=== PATIENT | female | born 1950 | race African-American/Black ===

== ENCOUNTER 2017-07-06 08:30 | Outpatient (CLI) | payer MEDICARE | END 2017-07-06 08:31 | disposition home or self-care (01) | LOC: BICRAD 08:30 | PROVIDERS: ATTEND Family Medicine | DX: M16.0 Bilateral primary osteoarthritis of hip (principal); M46.94 Unspecified inflammatory spondylopathy, thoracic region; M41.9 Scoliosis, unspecified; R10.9 Unspecified abdominal pain | CPT/HCPCS: 72072; 72170 ==

== ENCOUNTER 2017-08-27 08:47 | Outpatient (CLI) | payer MEDICARE | END 2017-08-27 08:48 | disposition home or self-care (01) | LOC: CTENTCT 08:47 | PROVIDERS: ATTEND Otolaryngology Plastic Surgery within the Head & Neck | DX: J32.9 Chronic sinusitis, unspecified (principal) | CPT/HCPCS: 70486 ==

== ENCOUNTER 2017-09-19 07:03 | Day surgery (SDC) | payer MEDICARE ==
[2017-09-18 11:22] VITALS: BMI 32.3
[2017-09-19] MEDS ORDERED: Oxymetazoline HCl 0.05% ( 15 ML ) ONE (07:47)
[2017-09-19] MEDS ORDERED: Scopolamine 1.5 mg/72 hour Patch ONE (08:24)
[2017-09-19 08:41] LABS: Hemoglobin 12.1 g/dL (12.0-16.0)
[2017-09-19 08:59] LABS: Anion Gap 11 mmol/L (10-20); BUN (Urea Nitrogen) 9 mg/dL (9.8-20.1); Calc. Creatinine Clearance 92 mL/min (70-130); Calcium 9.9 mg/dL (7.8-10.44); Carbon Dioxide 28 mmol/L (23-31); Chloride 103 mmol/L (98-107); Estimated GFR-MDRD 82; Glucose 239 mg/dL (80-115); Potassium 3.9 mmol/L (3.5-5.1); Sodium 138 mmol/L (136-145)
[2017-09-19] MEDS ORDERED: Fentanyl 250 MCG/5 ML VIAL ONE (09:10)
[2017-09-19] MEDS ORDERED: Labetalol HCl 100 MG/20 ML VIAL ONE ×2 (10:13→12:29)
[2017-09-19] MEDS ORDERED: Hydrocodone-Acetamin 15 ML UDCUP ONE (11:44)
[2017-09-19] MEDS ORDERED: Morphine 4 MG/ML VIAL ONE ×2 (12:13→14:03)
[2017-09-19] MEDS ORDERED: Ondansetron HCl/PF 4 MG/2 ML Vial ONE (13:32)
[2017-09-19] MEDS ORDERED: PROPOFOL 200 MG/20 ML VIAL ONE (13:32)
[2017-09-19] MEDS ORDERED: Glycopyrrolate 0.2 MG/ML 5 ML SYRINGE ONE (13:32)
--- NOTE | 2017-09-20 13:32 | OP ---
PREOPERATIVE DIAGNOSES: 1. Chronic rhinosinusitis. 2. Bilateral inferior turbinate hypertrophy. 3. Nasal obstruction. POSTOPERATIVE DIAGNOSES: 1. Chronic rhinosinusitis. 2. Bilateral inferior turbinate hypertrophy. 3. Nasal obstruction. PROCEDURES: 1. Bilateral endoscopic sinus surgery, total ethmoidectomies. 2. Bilateral endoscopic sinus surgery, maxillary antrostomies. 3. Bilateral endoscopic sinus surgery, frontal sinusotomies. 4. Bilateral inferior turbinate submucosal resection. SURGEON: Vu Arvizu M.D. ESTIMATED BLOOD LOSS: 20 mL COMPLICATIONS: None. ANESTHESIA: GETA. PROCEDURE IN DETAIL: The patient was taken to the operating room and placed supine on the table. Ge neral endotracheal anesthesia was obtained by the Anesthesia staff. Tube was secured in the left low er lip. The patient was then placed in the beach chair position and was prepped and draped for stand tessie nasal procedure. Following this, the 0 degree scope was advanced in the nasal cavity and a 27-ga uge needle was used to inject 1% lidocaine with 1:100,000 epinephrine into the inferior turbinates, m iddle turbinates and lateral nasal wall bilaterally. Following this, the middle turbinates were iden tified and were gently medialized with a [place] elevator bilaterally. The uncinate process was then v isualized bilaterally and was anteriorly fractured using a ball-ended probe. Following this, the unc inate was then removed using the straight microdebrider and the upbiting [place]akesley forceps bilaterall y. Following this, the natural maxillary sinus ostia was gently identified with the ball-ended probe and then was widened using the straight [place] forceps and the curved microdebrider. Following t his, the ethmoidal bulla was identified bilaterally and was punctured into the OR punctured on its me dial and inferior aspect and was removed using the microdebrider and upbiting Blakesley forceps. Fol lowing this, the grand lamella was identified and was punctured into the posterior ethmoidal cells. Working from posterior to anterior, the ethmoidal cells were opened in a mucosal-sparing technique. Following this, the 45-degree scope and the 40-degree microdebrider were used to further open the fro ntal recess cells identifying the frontal sinus ostia bilaterally. The frontal sinus ostia was widen ed bilaterally using the 40-degree microdebrider. Following this, the inferior turbinates were punct ured on the anterior and inferior aspect with the submucosal microdebrider and submucosal resection w as performed on the anterior inferior portions of the inferior turbinates bilaterally. Following thi s, the nasal cavity was irrigated. MeroPacks were placed. Patient tolerated the procedure well.
== END 2017-09-19 14:40 | disposition home or self-care (01) ==
LOC: SDC 07:03
PROVIDERS: ATTEND Otolaryngology Plastic Surgery within the Head & Neck
PROC: 09TV8ZZ Resection of Left Ethmoid Sinus, Via Natural or Artificial Opening Endoscopic (ICD-10-PCS; principal; 2017-09-19)
PROC: 09TU8ZZ Resection of Right Ethmoid Sinus, Via Natural or Artificial Opening Endoscopic (ICD-10-PCS; 2017-09-19)
DX: J01.91 Acute recurrent sinusitis, unspecified (principal); J34.2 Deviated nasal septum; J34.3 Hypertrophy of nasal turbinates; E11.9 Type 2 diabetes mellitus without complications; E78.00 Pure hypercholesterolemia, unspecified; F32.9 Major depressive disorder, single episode, unspecified; Z79.84 Long term (current) use of oral hypoglycemic drugs; Z79.899 Other long term (current) drug therapy; Z88.5 Allergy status to narcotic agent
CPT/HCPCS: 36415; 80048; 85014; 85018; 93005; 93010; 96374; 96375; 96376; J2270; J2405; J2704; J3010

== ENCOUNTER 2017-09-25 12:03 | Emergency (ER) | payer MEDICARE ==
[2017-09-25] MEDS ORDERED: Ondansetron HCl/PF 4 MG/2 ML Vial ONE (13:16)
[2017-09-25 13:44] LABS: #Eosinphils 0.2 thou/uL (0.0-0.7); #Lymphocytes 1.5 thou/uL (1.20-3.40); #Monocytes 0.3 thou/uL (0.11-0.59); #Neutrophils 4.9 thou/uL (1.40-6.50); %Basophils 0.4 % (0.0-1.0); %Eosinophils 2.7 % (0.0-10.0); %Lymphocytes 22.3 % (21.0-51.0); %Monocytes 4.2 % (0.0-10.0); %Neutrophils 70.4 % (42.0-75.0); Hemoglobin 11.4 g/dL (12.0-16.0); Mean Corpuscular HGB CONC 34.3 g/dL (32.0-36.0); Mean Corpuscular Hemoglobin 31.4 pg (27.0-31.0); Mean Corpuscular Volume 91.6 fL (78.0-98.0); Mean Platelet Volume 6.1 fL (7.4-10.4); Platelet Count 318 thou/uL (130-400); RBC Distribution Width 11.4 % (11.5-14.5); Red Blood Cell (RBC) Count 3.63 mill/uL (4.20-5.40); White Blood Cell (WBC) Count 6.9 thou/uL (4.8-10.8)
[2017-09-25 14:12] LABS: Anion Gap 11 mmol/L (10-20); BUN (Urea Nitrogen) 6 mg/dL (9.8-20.1); Calc. Creatinine Clearance 0 mL/min (70-130); Calcium 9.5 mg/dL (7.8-10.44); Carbon Dioxide 28 mmol/L (23-31); Chloride 101 mmol/L (98-107); Estimated GFR-MDRD 87; Glucose 236 mg/dL (80-115); Potassium 3.6 mmol/L (3.5-5.1); Sodium 136 mmol/L (136-145)
--- NOTE | 2017-09-25 15:11 | CT ---
CT SINUSES AND FACIAL BONES: Multiple axial tomograms were obtained through sinuses and facial bones with multiplanar reconstructi on. INDICATION: Post sinus surgery. Facial pain. COMPARISON: Correlation was made to CT sinuses 08/27/17. FINDINGS: Postop changes are now noted. There are bilateral anteromedial windows. There is complete opacifica tion of the right maxillary antrum and right ethmoid air cells. On soft tissue windows, there is an area of increased density within the right maxillary sinus which may represent a localized hematoma. There is a small amount of aeration anteriorly. Mucosal edema is seen in the periphery of the left maxillary antrum with central aeration. Left ethm oid air cells are also opacified. Mucosal edema is seen in the right frontal air cell posteriorly. There is mucosal edema in the front al recesses. Sphenoid air cells are clear. IMPRESSION: 1. Postoperative changes are noted. Complete opacification of the right maxillary sinus and adjacen t ethmoid air cells. An area of increased attenuation within the right maxillary sinus may represent a localized hematoma. 2. Mucosal edema involving the left maxillary and ethmoid air cells. POS: [facility]
== END 2017-09-25 16:05 | disposition home or self-care (01) ==
LOC: ERS 12:03
DX: R51 Headache (principal); E11.9 Type 2 diabetes mellitus without complications; E78.5 Hyperlipidemia, unspecified; I10 Essential (primary) hypertension; F32.9 Major depressive disorder, single episode, unspecified; Z79.899 Other long term (current) drug therapy
CPT/HCPCS: 36415; 70486; 80048; 85025; 96361; 96374; J2270; J2405

== ENCOUNTER 2018-02-02 20:59 | Emergency (ER) | payer MEDICARE ==
[2018-02-02] MEDS ORDERED: Ondansetron PF 4 MG/2 ML Vial ONE (21:34)
[2018-02-02 21:42] LABS: #Basophils 0.1 thou/uL (0.0-0.2); #Eosinphils 0.2 thou/uL (0.0-0.7); #Lymphocytes 2.5 thou/uL (1.20-3.40); #Monocytes 0.4 thou/uL (0.11-0.59); #Neutrophils 2.7 thou/uL (1.40-6.50); %Basophils 1.1 % (0.0-1.0); %Eosinophils 2.6 % (0.0-10.0); %Lymphocytes 42.8 % (21.0-51.0); %Monocytes 7.1 % (0.0-10.0); %Neutrophils 46.5 % (42.0-75.0); Hemoglobin 13.8 g/dL (12.0-16.0); Mean Corpuscular HGB CONC 33.7 g/dL (32.0-36.0); Mean Corpuscular Hemoglobin 30.1 pg (27.0-31.0); Mean Corpuscular Volume 89.2 fL (78.0-98.0); Mean Platelet Volume 6.8 fL (7.4-10.4); Platelet Count 377 thou/uL (130-400); RBC Distribution Width 11.3 % (11.5-14.5); Red Blood Cell (RBC) Count 4.59 mill/uL (4.20-5.40); White Blood Cell (WBC) Count 5.9 thou/uL (4.8-10.8)
[2018-02-02 22:03] LABS: ALT (SGPT) 30 U/L (8-55); AST (SGOT) 44 U/L (5-34); Albumin 4.5 g/dL (3.4-4.8); Alkaline Phosphatase 92 U/L (40-150); Anion Gap 16 mmol/L (10-20); BUN (Urea Nitrogen) 5 mg/dL (9.8-20.1); Bilirubin, Total 0.7 mg/dL (0.2-1.2); Calc. Creatinine Clearance 0 mL/min (70-130); Calcium 10.9 mg/dL (7.8-10.44); Carbon Dioxide 27 mmol/L (23-31); Chloride 97 mmol/L (98-107); Estimated GFR-MDRD 87; Glucose 139 mg/dL (80-115); Lipase 20 U/L (8-78); Potassium 3.6 mmol/L (3.5-5.1); Protein, Total 8.5 g/dL (6.0-8.3); Sodium 136 mmol/L (136-145)
[2018-02-02 22:12] LABS: Bilirubin Negative (Negative); Blood, Urine Negative (Negative); Clarity CLEAR (Clear); Glucose, Urine (Dipstick) Negative (Negative); Leukocyte Trace (Negative); Nitrite Negative (Negative); Protein, Urine (Dipstick) Negative (Neg-Trace); Urobilinogen 0.2 mg/dL (0.2-1.0)
[2018-02-02 22:13] LABS: Bacteria/HPF None Seen HPF (None Seen); Hyaline Casts/LPF 0-3 HYALINE CAST LPF (0-3 Hyaline); RBC/HPF None Seen HPF (0-3); Squamous Epithelial None Seen HPF (0-3); WBC/HPF None Seen HPF (0-3)
[2018-02-02 22:14] LABS: Specific Gravity, Urine 1.004 (1.002-1.036)
== END 2018-02-02 23:55 | disposition home or self-care (01) ==
LOC: ERS 20:59
DX: K59.00 Constipation, unspecified (principal); E11.9 Type 2 diabetes mellitus without complications; E78.5 Hyperlipidemia, unspecified; I10 Essential (primary) hypertension; F32.9 Major depressive disorder, single episode, unspecified; Z79.899 Other long term (current) drug therapy; Z79.82 Long term (current) use of aspirin; Z79.84 Long term (current) use of oral hypoglycemic drugs
CPT/HCPCS: 80053; 81003; 81015; 83690; 85025; 94760; 96361; 96374; J2405

== ENCOUNTER 2018-04-24 10:42 | Outpatient (CLI) | payer MEDICARE ==
[~2018-04-24 10:42] MED LIST: Iopamidol 370 76% 100 ML VIAL ONE
[2018-04-24 11:01] LABS: Estimated GFR-MDRD - POC Greater than 90
--- NOTE | 2018-04-24 13:04 | CT ---
CT ABDOMEN AND PELVIS WITH CONTRAST: Multiple axial tomograms were obtained through the abdomen and pelvis with IV enhancement. INDICATION: Right lower quadrant abdominal pain. COMPARISON: Comparison is made to a CT of abdomen and pelvis dated 08/04/2015. FINDINGS: Lung bases clear. Liver, spleen, and pancreas are unremarkable. Stomach and duodenum are unremarkable. Adrenal glands are normal. Kidneys unremarkable. Tiny low-density lesions in the kidney are too small to characterize, probably representing tiny cortical cysts. Urinary bladder not well distended but unremarkable in appearance. Small bowel loops normal caliber. The right colon is not well delineated. Has the patient had a right colectomy since the prior study? Appendix is not identified. Colon otherwise unremarkable. No mass or adenopathy. Aorta unremarkable. IMPRESSION: No acute finding. POS: DON
== END 2018-04-24 10:43 | disposition home or self-care (01) ==
LOC: BICCT 10:42
PROVIDERS: ATTEND Internal Medicine
DX: K58.1 Irritable bowel syndrome with constipation (principal); R10.9 Unspecified abdominal pain
CPT/HCPCS: 74177; 82565; Q9967

== ENCOUNTER 2018-06-05 07:36 | Outpatient (CLI) | payer MEDICARE ==
--- NOTE | 2018-06-05 09:53 | BD ---
BONE DENSITOMETRY USING DEXA: HISTORY: Postmenopausal screening for osteoporosis, unspecified osteoarthritis, unspecified site. FINDINGS: Lumbar Spine: BMD (g/cm2) L1 0.962 T-Score: -0.3 Z-Score: 1.4 L2 1.169 T-Score: 1.3 Z-Score: 3.2 L3 1.196 T-Score: 1.0 Z-Score: 3.0 L4 1.034 T-Score: -0.2 Z-Score: 1.8 L1-L4 1.088 T-Score: 0.4 Z-Score: 2.3 Femoral Neck: 0.870 T-Score: 0.2 Z-Score: 1.8 Total Femur: 0.998 T-Score: 0.5 Z-Score: 1.8 Impression: Normal bone mineral density. No evidence of osteopenia/osteoporosis. POS: OFF
== END 2018-06-05 07:37 | disposition home or self-care (01) ==
LOC: BICMAMMO 07:36
PROVIDERS: ATTEND Family Medicine
DX: Z13.820 Encounter for screening for osteoporosis (principal); M19.90 Unspecified osteoarthritis, unspecified site
CPT/HCPCS: 77080

== ENCOUNTER 2018-06-17 11:25 | Outpatient (CLI) | payer MEDICARE ==
--- NOTE | 2018-06-17 11:54 | CT ---
CT Brain WO Con: 06/17/2018 12:00 AM CLINICAL HISTORY: Headache. COMPARISON: None. FINDINGS: Hemorrhage: None. Ventricular system: Normal in size and morphology for the patient's age. Cerebral parenchyma: Normal Midline shift: None. Mass: No mass effect. Calvarium: Normal. Visualized Paranasal sinuses: Clear. IMPRESSION: No acute intracranial abnormalities.
--- NOTE | 2018-06-17 12:28 | RAD ---
4 views left elbow: 06/17/2018 COMPARISON: None HISTORY: Fall last FINDINGS: No fracture or dislocation. No radiopaque foreign body or subcutaneous gas. No elbow joint effusion. IMPRESSION: No acute findings.
--- NOTE | 2018-06-17 12:29 | RAD ---
Right knee 4 views: 06/17/2018 COMPARISON: None HISTORY: Fall on FINDINGS: Moderate medial compartment narrowing with subchondral sclerosis and osteophyte formation o f the medial tibial plateau and medial femoral condyle noted. No knee joint effusion. No acute fracture or dislocation. Mild patellofemoral joint space narrowing. IMPRESSION: Degenerative joint disease. No acute osseous abnormality.
== END 2018-06-17 11:26 | disposition home or self-care (01) ==
LOC: BICRAD 11:25 → BICCT 11:26
PROVIDERS: ATTEND Family Medicine
DX: R51 Headache (principal); M17.11 Unilateral primary osteoarthritis, right knee
CPT/HCPCS: 70450

== ENCOUNTER 2018-08-20 13:17 | Outpatient (CLI) | payer MEDICARE ==
--- NOTE | 2018-08-20 13:44 | RAD ---
RIGHT KNEE RADIOGRAPHS TWO VIEWS: 08/20/18 PROVIDED CLINICAL HISTORY: Osteoarthritis. FINDINGS: Comparison is made with the study dated 06/17/18. Osteophyte formation is again seen about the medial femorotibial joint compartment with associated joint space narrowing. Alignment appears anatomic. Henrietta nt spaces appear otherwise preserved. No evidence for significant joint capsular distention. IMPRESSION: Right knee degenerative change. POS: OFF
--- NOTE | 2018-08-20 13:46 | RAD ---
LEFT KNEE RADIOGRAPHS TWO VIEWS: 08/20/18 PROVIDED CLINICAL HISTORY: Osteoarthritis. FINDINGS: No evidence for fracture or other acute osseous abnormality. Alignment appears anatomic. Joint spaces appear preserved. Minimal osteophyte formation about the medial femorotibial joint compartment. No e vidence for significant knee joint capsular distention. IMPRESSION: Minimal degenerative change. POS: OFF
== END 2018-08-20 13:18 | disposition home or self-care (01) ==
LOC: BICRAD 13:17
PROVIDERS: ATTEND Internal Medicine Rheumatology
DX: M17.0 Bilateral primary osteoarthritis of knee (principal)

== ENCOUNTER 2018-10-29 08:41 | Outpatient (CLI) | payer MEDICARE ==
--- NOTE | 2018-10-29 09:34 | MMO ---
Bilateral MAMMO Bilat Screen [facility]. CLINICAL HISTORY: Patient is 68 years old and is seen for screening. The patient has no family history of breast cancer. The patient has no personal history of cancer. The patient has a history of bilateral Breast reduction at age 49. VIEWS: The views performed were: bilateral craniocaudal with tomosynthesis and bilateral mediolateral oblique with tomosynthesis. FILMS COMPARED: The present examination has been compared to prior imaging studies performed at [facility] on 07/23/2014 and 11/17/2016. This study has been interpreted with the assistance of computer-aided detection. MAMMOGRAM FINDINGS: There are benign appearing calcifications seen in both breasts. Biopsy marker left breast. There are no suspicious masses, suspicious calcifications, or new areas of architectural distortion. IMPRESSION: THERE IS NO MAMMOGRAPHIC EVIDENCE OF MALIGNANCY. A ROUTINE FOLLOW-UP MAMMOGRAM IN 1 YEAR IS RECOMMENDED. THE RESULTS OF THIS EXAM WERE SENT TO THE PATIENT. ACR BI-RADS Category 2 - Benign finding MAMMOGRAPHY NOTE: 1. A negative mammogram report should not delay a biopsy if a dominant of clinically suspicious mass is present. 2. Approximately 10% to 15% of breast cancers are not detected by mammography. 3. Adenosis and dense breasts may obscure an underlying neoplasm. Reported by: ANILA PALACIOS MD Electonically Signed: [id number]
== END 2018-10-29 08:42 | disposition home or self-care (01) ==
LOC: BICMAMMO 08:41
PROVIDERS: ATTEND Family Medicine
DX: Z12.31 Encounter for screening mammogram for malignant neoplasm of breast (principal); Z98.890 Other specified postprocedural states
CPT/HCPCS: 77063; 77067

== ENCOUNTER 2019-01-29 02:48 | Emergency (ER) | payer MEDICARE ==
[2019-01-29 03:12] LABS: Hemoglobin 12.1 g/dL (12.0-16.0); Mean Corpuscular HGB CONC 34.2 g/dL (32.0-36.0); Mean Corpuscular Volume 90.5 fL (78.0-98.0); Mean Platelet Volume 6.6 fL (7.4-10.4); Platelet Count 324 thou/uL (130-400); RBC Distribution Width 10.8 % (11.5-14.5); White Blood Cell (WBC) Count 5.9 thou/uL (4.8-10.8)
[2019-01-29 03:28] LABS: Band 1 % (5-11); Lymphocytes 33 % (21-51); MDiff Complete? YES; Monocytes 5 % (0-10); Neutrophil 61 % (42-75); Platelet Morphology Comment Appears Adequate; RBC Morphology Normal
[2019-01-29 04:06] LABS: ALT (SGPT) 18 U/L (8-55); AST (SGOT) 27 U/L (5-34); Albumin 3.7 g/dL (3.4-4.8); Alkaline Phosphatase 82 U/L (40-110); Anion Gap 10 mmol/L (10-20); BUN (Urea Nitrogen) 10 mg/dL (9.8-20.1); Bilirubin, Total 0.4 mg/dL (0.2-1.2); Calc. Creatinine Clearance 0 mL/min (70-130); Calcium 9.8 mg/dL (7.8-10.44); Carbon Dioxide 34 mmol/L (23-31); Chloride 99 mmol/L (98-107); Estimated GFR-MDRD 60; Globulin 3.3 g/dL (2.4-3.5); Glucose 182 mg/dL (80-115); Potassium 3.1 mmol/L (3.5-5.1); Sodium 140 mmol/L (136-145)
[2019-01-29 05:58] LABS: Bilirubin Negative (Negative); Blood, Urine Negative (Negative); Clarity Clear (Clear); Glucose, Urine (Dipstick) Normal (Negative); Leukocyte Negative Leu/uL (Negative); Nitrite Negative (Negative); Protein, Urine (Dipstick) Negative (Neg-Trace); Urobilinogen Normal mg/dL (Less than 2)
--- NOTE | 2019-01-29 07:52 | RAD ---
RADIOGRAPH CHEST 1 VIEW: DATE: 01/29/2019 HISTORY: 68-year-old female status post syncope. Concern for aspiration. FINDINGS: There are no airspace densities, pulmonary edema, pneumothorax, or cardiomegaly. The lateral costophr enic angles are sharp. IMPRESSION: No acute cardiopulmonary findings.
--- NOTE | 2019-01-29 07:53 | CT ---
PRELIMINARY REPORT/[facility]/EMERGENCY AFTER HOURS PROCEDURE: EXAM: CT Abdomen and Pelvis with Intravenous Contrast CLINICAL HISTORY: ER 8... F68 presented to the ED via the EMS with a c/o syncope while getting out of bed to go to bath room just [employer]. Pt reports she got lightheaded when she got up too fast this morning. Pt reports pain in her lower back and suspect that she has an UTI. Pt denies burning sensation with urination or frequent urination. Pt reports she has been eating less because the medication she takes decreases her appetite. Surgical history of tubal ligation, Surgical history of hysterectomy TECHNIQUE: Axial computed tomography images of the abdomen and pelvis with intravenous contrast. CONTRAST: With; ISOVUE 370, 90 ML COMPARISON: None provided. FINDINGS: LUNG BASES: No basilar airspace consolidation or pleural effusion. LIVER: Unremarkable. GALLBLADDER AND BILE DUCTS: Unremarkable. No calcified stone. No ductal dilation. PANCREAS: Prominence of the proximal main pancreatic duct measuring up to 6 mm. SPLEEN: Unremarkable. ADRENAL GLANDS: Unremarkable. KIDNEYS, URETERS, AND BLADDER: Subcentimeter hypodensity at the lower pole of the left kidney. No nep hrolithiasis or hydronephrosis. STOMACH AND BOWEL: No obstruction. No wall thickening. No CT evidence of colitis or acute diverticuli tis. APPENDIX: Normal appendix. PERITONEUM: No free fluid. No free air. LYMPH NODES: No lymphadenopathy. REPRODUCTIVE: Status post hysterectomy. VASCULATURE: No aortic aneurysm. BONES: Loss of intervertebral disc height at L2/3 with adjacent sclerotic changes in the vertebral marvin dies which may represent degenerative changes but infection at this level cannot be excluded. ABDOMINAL WALL AND SOFT TISSUES: Unremarkable. IMPRESSION: Loss of intervertebral disc height at L2/3 with adjacent sclerotic changes in the vertebral bodies wh ich may represent degenerative changes but infection at this level cannot be excluded. Further evaluation with MRI may be obtained if clinically indicated. Prominence of the proximal main pancreatic duct measuring up to 6 mm. Further evaluation with EUS is recommended. ELECTRONICALLY SIGNED BY: Morelia Ojeda MD Jan 29, 2019 4:48:02 AM [employer] EXERC[employer] INSTRUCTOR This report is intended for review by the ordering physician only, in accordance of law. If you recei ve this report in error, please call [facility] at [phone]. FINAL REPORT HISTORY: Syncope. COMPARISON: CT abdomen pelvis April 2018. FINDINGS: Lung bases are clear. No pericardial effusion. The liver, spleen, adrenal glands, gallbladder are unr emarkable. Mild prominence of the pancreatic duct appears slightly more prominent than the comparison examination. No dilated loops of large or small bowel. No free intraperitoneal fluid. The aortoiliac system is non aneurysmal. Advanced degenerative disc space changes at L2-L3, asymmetrically right-sided, with subsequent mild levoscoliosis at this level. IMPRESSION: Findings and impression are concordant with the preliminary report. The degenerative disc space heigh t loss and sclerosis at L2-L3 was present in April 2018 and is similar. Transcribed Date/Time: 01/29/2019 8:05 AM
== END 2019-01-29 06:23 | disposition home or self-care (01) ==
LOC: ERS 02:48
DX: R55 Syncope and collapse (principal); M19.90 Unspecified osteoarthritis, unspecified site; E11.9 Type 2 diabetes mellitus without complications; E78.5 Hyperlipidemia, unspecified; I10 Essential (primary) hypertension; F32.9 Major depressive disorder, single episode, unspecified; Z79.82 Long term (current) use of aspirin; Z79.84 Long term (current) use of oral hypoglycemic drugs; Z79.899 Other long term (current) drug therapy
CPT/HCPCS: 71045; 74177; 80053; 81003; 84484; 85025; 93005; 96360; 96361

== ENCOUNTER 2020-08-23 10:05 | Outpatient (CLI) | payer MEDICARE | END 2020-08-23 10:06 | disposition home or self-care (01) | LOC: BICRAD 10:05 | PROVIDERS: ATTEND Internal Medicine Rheumatology | DX: M17.0 Bilateral primary osteoarthritis of knee (principal) ==

== ENCOUNTER 2021-04-13 14:26 | Outpatient (CLI) | payer MEDICARE | END 2021-04-13 14:27 | disposition home or self-care (01) | LOC: BICRAD 14:26 | PROVIDERS: ATTEND Physician Assistant Medical | DX: R14.0 Abdominal distension (gaseous) (principal) | CPT/HCPCS: 74019 ==

== ENCOUNTER 2021-04-16 11:09 | Emergency (ER) | payer MEDICARE ==
[2021-04-16 13:00] LABS: #Basophils 0.1 thou/uL (0.0-0.2); #Eosinphils 0.1 thou/uL (0.0-0.7); #Lymphocytes 3.2 thou/uL (1.20-3.40); #Monocytes 0.3 thou/uL (0.11-0.59); #Neutrophils 3.1 thou/uL (1.40-6.50); %Basophils 1.3 % (0.0-1.0); %Eosinophils 1.5 % (0.0-10.0); %Lymphocytes 46.8 % (21.0-51.0); %Neutrophils 45.4 % (42.0-75.0); Hemoglobin 13.5 g/dL (12.0-16.0); Mean Corpuscular HGB CONC 33.3 g/dL (32.0-36.0); Mean Corpuscular Hemoglobin 31.1 pg (27.0-31.0); Mean Corpuscular Volume 93.3 fL (78.0-98.0); Mean Platelet Volume 6.6 fL (7.4-10.4); Platelet Count 308 thou/uL (130-400); RBC Distribution Width 11.4 % (11.5-14.5); Red Blood Cell (RBC) Count 4.35 mill/uL (4.20-5.40); White Blood Cell (WBC) Count 6.8 thou/uL (4.8-10.8)
[2021-04-16 13:26] LABS: ALT (SGPT) 28 U/L (8-55); AST (SGOT) 34 U/L (5-34); Albumin 4.4 g/dL (3.4-4.8); Alkaline Phosphatase 87 U/L (40-110); Anion Gap 16 mmol/L (10-20); BUN (Urea Nitrogen) 9 mg/dL (9.8-20.1); Bilirubin, Total 0.4 mg/dL (0.2-1.2); Calc. Creatinine Clearance 0 mL/min (70-130); Calcium 9.9 mg/dL (7.8-10.44); Carbon Dioxide 26 mmol/L (23-31); Chloride 101 mmol/L (98-107); Globulin 3.5 g/dL (2.4-3.5); Glucose 120 mg/dL (80-115); Lipase 38 U/L (8-78); Potassium 3.2 mmol/L (3.5-5.1); Protein, Total 7.9 g/dL (5.8-8.1); Sodium 140 mmol/L (136-145)
[2021-04-16 13:35] LABS: Bilirubin Negative (Negative); Blood, Urine Negative (Negative); Clarity Clear (Clear); Glucose, Urine (Dipstick) Normal (Negative); Ketone, Urine Negative (Negative); Leukocyte Negative Leu/uL (Negative); Nitrite Negative (Negative); Protein, Urine (Dipstick) Negative (Neg-Trace); Specific Gravity, Urine 1.006 (1.002-1.036); Urobilinogen Normal mg/dL (Less than 2)
[2021-04-16] MEDS ORDERED: Potassium Chloride 20 MEQ TAB ONE (14:26)
== END 2021-04-16 14:41 | disposition home or self-care (01) ==
LOC: ERS 11:09
DX: E87.6 Hypokalemia (principal); R53.1 Weakness; E11.9 Type 2 diabetes mellitus without complications; E78.5 Hyperlipidemia, unspecified; I10 Essential (primary) hypertension; Z79.899 Other long term (current) drug therapy; Z79.82 Long term (current) use of aspirin; Z79.84 Long term (current) use of oral hypoglycemic drugs
CPT/HCPCS: 80053; 81003; 83690; 85025; 93005; 99284